=== PATIENT | female | born 1980 | race Caucasian/White ===

== ENCOUNTER → 2022-07-08 15:29 | Outpatient (CLI) | payer BC, SELFPAY ==
--- NOTE | 2022-07-08 15:32 | CA_ITS ---
APPROVED REPORT EXAM: Comprehensive 2D, Doppler, and color-flow Echocardiogram Hopper Feeder: Triny Flores CRT Ht: 5 ft 10 in Wt: 162lbs BSA: 1.91 BP: 143/94 mmHg Indications: Chest Pain, Murmur, Hyperlipidemia, Hypertension/HDD, pectus excavatum, tachycardia 2D Dimensions LVOT 1.91 cm (M/F) 1.5-2.5 LA Volume 23.70 mL LA Volume Index 12.40 mL/m2 (M/F) 16-34 M-Mode Dimensions RVDd 1.69 cm (0.9-2.6) LA Diam 2.05 cm (1.9-4.0) LVDd 4.07 cm (3.5-5.7) Ao Diam 3.30 cm (2.0-3.7) LVDs 2.58 cm (3.5-5.7) IVSd 0.71 cm (0.6-1.1) PWd 0.64 cm (0.6-1.1) EF (Teich) 66.90% FS 36.60% EDV (Teich) 72.90 mL TAPSE 3.09 (<1.7) ESV (Teich) 24.10 mL LV Diastology E Decel Time 150.00 (160-240 msec) E/A Ratio 0.77 MED E' 13.40 (< 7 cm/sec) MED A' 11.10 cm/s E'/MED E' Ratio 7.41 (>14) LAT E' 18.70 (<10 cm/sec) LAT A' 13.20 cm/s E/LAT E' Ratio 5.31 (>14) Aortic Valve AO Peak GR. 12.50 mmHg Mitral Valve MV E Max Artemio. 99.00 (40-130 cm/s) MV A Velocity 128.00 (40-130 cm/s) E/A Ratio 0.77 MV Decel. Time 150.00 (160-240 ms) MV PHT 44.00 ms Pulmonary Valve PV Peak Velocity 98.00 (50-150 cm/s) Tricuspid Valve TR P. Velocity 150.00 cm/s RAP Estimate 10.00 mmHg RVSP 19.00 mmHg Left Ventricle Left atrium normal size, left ventricle is normal size, there is no concentric left ventricular hypertrophy, estimated ejection fraction 55% with no regional wall motion abnormality, diastolic parameters are within normal range. Right Ventricle Right atrium and right ventricle are normal size and contractility. Aortic Valve Aortic valve is not well visualized there is no aortic stenosis or aortic insufficiency. Mitral Valve Mitral valve grossly normal, there is no mitral stenosis, there is trace mitral regurgitation. Tricuspid Valve Tricuspid valve is grossly normal, there is trace tricuspid regurgitation, tricuspid regurgitation jet velocity is inadequate for calculation of the right ventricular systolic pressure. Pulmonic Valve Pulmonic valve is poorly visualized. Great Vessels Aortic root is normal size. Inferior vena cava is normal size with normal inspiratory collapse. Pericardium No significant pericardial effusion noted. Conclusion 1. Normal left ventricular size, preserved left ventricular systolic function, estimated ejection fraction 55% with no regional wall motion abnormality, diastolic parameters are within normal range. 2. Trace mitral and tricuspid regurgitation. 3. No significant pericardial effusion noted. 4. Inferior vena cava is normal size with normal spectral collapse. Electronically signed by : Cruzito Nguyen MD 07/09/2022 13:50:39
[2022-07-08 15:53] LABS: MANUAL DIFFERENTIAL MANUAL DIFFERENTIAL (MANUAL DIFF)
[2022-07-08 16:32] LABS: Basophils # 0.1 K/mm3 (0-0.2); Eosinophils % 0.4 % (0.1-12.0); Hematocrit 41.9 % (37.0-47.0); Hemoglobin 13.4 g/dL (12.2-16.2); Lymphocytes # 2.2 K/mm3 (0.7-4.5); Lymphocytes % 24.7 % (10-50); Mean Corpuscular Hemoglobin 31.1 pg (27.0-31.2); Mean Corpuscular Volume 97.2 fl (81-99); Mean Platelet Volume 7.9 fl (7.4-10.4); Monocytes # 0.4 K/mm3 (0.1-1.0); Monocytes % 4.5 % (1.7-9.3); Neutrophils # 6.1 K/mm3 (1.8-7.8); Neutrophils % 69.4 % (37.0-80.0); Platelet Count 398 K/mm3 (142-424); Red Blood Count 4.31 M/mm3 (4.20-5.40); White Blood Count 8.8 K/mm3 (4.8-10.8)
[2022-07-08 16:41] LABS: Alanine Aminotransferase 18 U/L (12-78); Albumin Level 4.6 g/dl (3.5-5.0); Alkaline Phosphatase 53 U/L (38-126); Anion Gap 14.7 mEq/L (5-15); Aspartate Amino Transferase 25 U/L (14-36); Bilirubin,Unconjugated 0.3 mg/dL (0.0-1.1); Blood Urea Nitrogen 8 mg/dl (7-17); Carbon Dioxide 26 mmol/L (22.0-30.0); Chloride 101 mmol/L (98-107); Estimated Glomerular Filt Rate 79 ml/min (>60); GFR (African American) 95 ML/MIN (>60); Glucose 104 mg/dl (74-100); Potassium 3.7 mmoL/L (3.5-5.1); Sodium 138 mmol/L (136-145); Total Protein,Serum 7.3 g/dl (6.3-8.2)
[2022-07-08 16:46] LABS: C-Reactive Protein 2.6 mg/L (0-4)
[2022-07-08 16:47] LABS: Bilirubin,Indirect 0.1 mg/dL (0.0-0.9); Bilirubin,Total < 0.1 mg/dl (0.2-1.3); D-Dimer 0.46 ug/mL (0.0-0.5)
[2022-07-08 16:58] LABS: Troponin I < 0.01 ng/ml (0.00-0.034)
[2022-07-08 17:05] LABS: Erythrocyte Sedimentation Rate 12 mm/hr (0-20)
[2022-07-08 17:14] LABS: Thyroid Stimulating Hormone 1.72 uIU/mL (0.465-4.68)
[2022-07-08 17:26] LABS: 25-OH Vitamin D, Total 26.2 ng/mL (30-100)
[2022-07-08 17:27] LABS: Free T4 (Free Thyroxine) 0.91 ng/dl (0.78-2.19)
[2022-07-08 18:35] LABS: Lymphocytes % 21 % (10-50); Monocytes % 6 % (2-9); Neutrophils % 73 % (42-76); Platelet Estimate Normal; RBC Morphology Normal; Total Cells Counted 100
== END ==
PROVIDERS: PCP Nurse Practitioner Family; Visit Provider Internal Medicine
DX: R07.89 Other chest pain (principal); R00.0 Tachycardia, unspecified; I34.0 Nonrheumatic mitral (valve) insufficiency; Q67.6 Pectus excavatum; Z86.79 Personal history of other diseases of the circulatory system; E55.9 Vitamin D deficiency, unspecified
CPT/HCPCS: 36415; 80048; 80076; 82306; 84439; 84443; 84484; 85007; 85014; 85018; 85048; 85049; 85378; 85651; 86140; 93306